=== PATIENT | male | born 1965 | race Caucasian/White ===

== ENCOUNTER 2024-10-05 12:05 | Inpatient (IN) | payer OTHER ==
[2024-10-05 12:48] VITALS: RESP 18; BMI 34.5
[2024-10-05] MEDS ORDERED: ACETAMINOPHEN 325 MG TABLET (FP) PO PRN (15:19)
[2024-10-05] MEDS ORDERED: BENZOCAINE/MENTHOL (CHLORASEPTIC ) LOZENGE MM PRN (15:19)
[2024-10-05] MEDS ORDERED: BENZONATATE 200 MG CAPSULE PO PRN (15:19)
[2024-10-05] MEDS ORDERED: IBUPROFEN 400 MG TABLET (FP) PO PRN (15:19)
[2024-10-05] MEDS ORDERED: hydrOXYzine PAMOATE 25 MG CAPSULE (FP) PO PRN (15:19)
[2024-10-05] MEDS ORDERED: LOPERAMIDE HCL 2 MG CAPSULE PO PRN (15:19)
[2024-10-05] MEDS ORDERED: MAG HYDROX/AL HYDROX/SIMETH 30 ML UNIT-DOSE CUP PO PRN (15:19)
[2024-10-05] MEDS ORDERED: guaiFENesin 600 MG TABLET.ER (FP) PO PRN (15:19)
[2024-10-05] MEDS ORDERED: MAGNESIUM HYDROX 2400MG/30ML ORAL SUSPENSION 30 ML CUP PO PRN (15:19)
[2024-10-05] MEDS ORDERED: IBUPROFEN 600 MG TABLET (FP) PO PRN (15:19)
[2024-10-05] MEDS ORDERED: POLYETHYLENE GLYCOL (HEALTHYLAX) 3350 17 GM PACKET PO PRN (15:19)
[2024-10-05] MEDS ORDERED: NALOXONE (NARCAN) HCL 4 MG/0.1 ML SPRAY NS PRN (15:19)
[2024-10-05] MEDS ORDERED: TUBERCULIN PPD 5 TU/0.1ML VIAL ID ONE (18:08)
[2024-10-05] MEDS: PRENATAL VITAMINS W/ FOLIC ACID TABLET (FP) PO SCH (18:15)
[2024-10-05] MEDS: TUBERCULIN PPD 5 TU/0.1ML VIAL ID ONE (19:08)
[2024-10-05] MEDS: THIAMINE 100 MG TABLET PO SCH (22:40)
[2024-10-05] MEDS: MELATONIN 5 MG TABLETS PO SCH (22:40)
[2024-10-06] MEDS: INSULIN ASPART SLIDING SCALE (NOVOLOG) 1 VIAL SQ SCH (06:19)
[2024-10-06 07:18] VITALS: TEMP 97.3
[2024-10-06] MEDS: LOSARTAN POTASSIUM 50 MG TABLET PO SCH (09:53)
[2024-10-06] MEDS: amLODIPine BESYLATE 10 MG TABLET (FP) PO SCH (09:55)
[2024-10-06] MEDS: metoPROLOL SUCCINATE 25 MG TAB.SR.24H (FP) PO SCH (09:56)
[2024-10-06 10:36] LABS: HEMATOCRIT 47.2 % (40.1-51.0); MCHC 31.8 g/dl (32.3-36.5); MEAN CELL VOLUME 85.5 fl (79.0-92.2); MEAN PLT VOLUME 10.2 fl (9.4-12.4); PLATELET COUNT 257 x10^3/uL (163-337); RDW 13.6 % (12.2-16.1)
[2024-10-06 10:38] LABS: PH,URINE 5.5 (5.0-8.0); URINE APPEARANCE CLEAR; URINE BILIRUBIN NEGATIVE (NEGATIVE); URINE COLOR YELLOW; URINE GLUCOSE (UA) 2+ (NEGATIVE); URINE KETONE NEGATIVE (NEGATIVE); URINE LEUK ESTERASE NEGATIVE (NEGATIVE); URINE NITRITE NEGATIVE (NEGATIVE); URINE PROTEIN NEGATIVE (NEGATIVE); URINE UROBILINOGEN 0.2 mg/dL (0.2-1.0)
[2024-10-06 10:46] LABS: CHLORIDE 106 mmol/L (98-107); POTASSIUM 4.5 mmol/L (3.5-5.1); SODIUM 138 mmol/L (136-145)
[2024-10-06 10:54] LABS: ALBUMIN 3.7 g/dl (3.4-5.0); ANION GAP 6 mmol/L (4-13); BLOOD UREA NITROGEN 10.8 mg/dL (7-18); CALCIUM 9.9 mg/dL (8.5-10.1); CO2 26 mmol/L (21-32); GLUCOSE,RANDOM 106 mg/dL (74-106)
[2024-10-06 10:57] LABS: CREATININE 0.9 mg/dL (0.55-1.3); SGOT/AST 22 U/L (15-37); SGPT/ALT 47 U/L (13-61)
[2024-10-06 10:59] LABS: TOT PROT 6.9 g/dl (6.4-8.2)
[2024-10-06 11:00] LABS: ALK PHOS 103 U/L (45-117)
[2024-10-06 13:02] VITALS: BP 144/86; PULSE 98
[2024-10-06 18:23] LABS: SYPHILIS W/ RPR CONF NON-REACTIVE (NONREACTIVE)
[2024-10-06 18:52] LABS: HCV DIAGNOSTIC IN-HOUSE W/RFLX NON-REACTIVE (NONREACTIVE)
== END 2024-10-06 17:57 | disposition left against medical advice (07) | DRG 770 ==
LOC: YASAS 12:05 → Y3W 14:38
PROVIDERS: ADMIT Allergy & Immunology; ATTEND Allergy & Immunology
PROC: HZ42ZZZ Group Counseling for Substance Abuse Treatment, Cognitive-Behavioral (ICD-10-PCS; principal; 2024-10-05)
DX: F10.20 Alcohol dependence, uncomplicated (principal); F14.20 Cocaine dependence, uncomplicated; F12.20 Cannabis dependence, uncomplicated; F17.210 Nicotine dependence, cigarettes, uncomplicated; F41.9 Anxiety disorder, unspecified; I10 Essential (primary) hypertension; R73.03 Prediabetes
CPT/HCPCS: 36415; 80053; 80305; 80307; 81003; 82962; 83036; 85027; 86780; 86803; 87811; 93005; 93010